=== PATIENT | male | born 1985 | race Caucasian/White ===

== ENCOUNTER 2019-12-17 10:00 | Emergency (ER) | payer SELFPAY ==
--- NOTE | 2019-12-17 10:16 | EDM.PDOC ---
ED HPI GENERAL MEDICAL PROBLEM - General Chief Complaint: Chest Pain Stated Complaint: CHEST PAIN Time Seen by Provider: 12/17/19 10:14 - History of Present Illness INITIAL COMMENTS - FREE TEXT/NARRATIVE: 34-year-old male presents the emergency room with chest pain. This pain started around 4:00 this morning and is described as a left substernal and left-sided stabbing pain. For several days prior to this patient has had a lot of heartburn and indigestion. Patient does not have any history of coronary artery disease and he is not aware of any family history of heart disease or stroke. Patient quit smoking about a year ago he uses alcohol on a intermittent social basis. Left Chest Pain Score (Numeric/FACES): 8 - Related Data Allergies Allergy/AdvReac Type Severity Reaction Status Date / Time No Known Allergies Allergy Verified 12/17/19 10:08 Home Meds: Home Meds Ipratropium [Atrovent HFA] 1 dose INH Q6HR PRN 12/17/19 [History] Past Medical History Respiratory History: Reports: Asthma Social & Family History - Tobacco Use Smoking Status *Q: Former Smoker Used Tobacco, but Quit: Yes Month/Year Tobacco Last Used: 2019 - Caffeine Use Caffeine Use: Reports: None - Recreational Drug Use Recreational Drug Use: No ED ROS GENERAL - Review of Systems Review Of Systems: See Below Constitutional: Reports: No Symptoms HEENT: Reports: No Symptoms Respiratory: Reports: Other (Pain worsens with deep inspiration) Cardiovascular: Reports: Chest Pain. Denies: Dyspnea on Exertion, Edema, Palpitations Endocrine: Reports: No Symptoms GI/Abdominal: Reports: Other (He has had some indigestion and heartburn). Denies: Constipation, Diarrhea, Nausea, Vomiting : Reports: No Symptoms Musculoskeletal: Reports: No Symptoms Skin: Reports: No Symptoms Neurological: Reports: No Symptoms ED EXAM, GENERAL - Physical Exam Exam: See Below Exam Limited By: No Limitations General Appearance: Alert, Moderate Distress (From the discomfort he is clenching the left side of his chest) Head: Atraumatic, Normocephalic Neck: Normal Inspection, Supple, Non-Tender, Full Range of Motion. No: Lymphadenopathy (L), Lymphadenopathy (R) Respiratory/Chest: No Respiratory Distress, Lungs Clear, Normal Breath Sounds Cardiovascular: Regular Rate, Rhythm, No Edema, No Murmur GI/Abdominal: Normal Bowel Sounds, Other (Mild to moderate epigastric discomfort with palpation no rigidity rebound or guarding noted) Extremities: Normal Inspection Neurological: Alert, Oriented, Normal Cognition Course - Vital Signs Last Recorded V/S: Last Vital Signs Temp 36.1 C 12/17/19 10:05 Pulse 96 12/17/19 10:05 Resp 28 H 12/17/19 10:05 BP 139/85 12/17/19 10:42 Pulse Ox 95 12/17/19 10:05 - Orders/Labs/Meds Orders: Active Orders 24 hr Category Date Time Status EKG 12 Lead [EKG Documentation Completion] [RC] STAT Care 12/17/19 10:09 Active Lactated Ringers [Ringers, Lactated] 1,000 ml Med 12/17/19 10:45 Active IV ASDIRECTED Nitroglycerin [Nitrostat] Med 12/17/19 10:33 Active 0.4 mg SL Q5M PRN Medication Orders Lactated Ringer's (Ringers, Lactated) 1,000 mls @ 50 mls/hr IV ASDIRECTED ALDAIR Last Admin: 12/17/19 10:40 Dose: 50 mls/hr Documented by: ELIZABETH Nitroglycerin (Nitrostat) 0.4 mg SL Q5M PRN PRN Reason: Chest Pain Last Admin: 12/17/19 10:42 Dose: 0.4 mg Documented by: ELIZABETH Labs: Laboratory Tests 12/17/19 12/17/19 12/17/19 Range/Units 10:15 10:15 10:15 WBC 9.48 H (4.23-9.07) K/mm3 RBC 5.95 (4.63-6.08) M/mm3 Hgb 17.1 (13.7-17.5) gm/dl Hct 47.4 (40.1-51.0) % MCV 79.7 (79.0-92.2) fl MCH 28.7 (25.7-32.2) pg MCHC 36.1 H (32.2-35.5) g/dl RDW Std Deviation 38.8 (35.1-43.9) fL Plt Count 352 H (163-337) K/mm3 MPV 9.6 (9.4-12.3) fl Neut % (Auto) 50.4 (34.0-67.9) % Lymph % (Auto) 40.6 (21.8-53.1) % [place] % (Auto) 7.0 (5.3-12.2) % Eos % (Auto) 1.4 (0.8-7.0) Baso % (Auto) 0.3 (0.1-1.2) % Neut # (Auto) 4.78 (1.78-5.38) K/mm3 Lymph # (Auto) 3.85 H (1.32-3.57) K/mm3 [place] # (Auto) 0.66 (0.30-0.82) K/mm3 Eos # (Auto) 0.13 (0.04-0.54) K/mm3 Baso # (Auto) 0.03 (0.01-0.08) K/mm3 PT 10.7 (9.7-11.7) SECONDS INR 1.00 APTT 25 (22-31) SECONDS D-Dimer, Quantitative (0.19-0.50) mg/L Sodium 140 (136-145) mEq/L Potassium 3.8 (3.5-5.1) mEq/L Chloride 101 (98-107) mEq/L Carbon Dioxide 25 (21-32) mEq/L Anion Gap 17.8 H (5-15) BUN 14 (7-18) mg/dL Creatinine 1.3 (0.7-1.3) mg/dL Est Cr Clr Drug Dosing 86.08 mL/min Estimated GFR (MDRD) > 60 (>60) mL/min BUN/Creatinine Ratio 10.8 L (14-18) Glucose 105 (74-106) mg/dL Calcium 9.7 (8.5-10.1) mg/dL Total Bilirubin 0.5 (0.2-1.0) mg/dL AST 24 (15-37) U/L ALT 53 (16-63) U/L Alkaline Phosphatase 85 (46-116) U/L Troponin I < 0.017 (0.00-0.056) ng/mL Total Protein 7.8 (6.4-8.2) g/dl Albumin 4.2 (3.4-5.0) g/dl Globulin 3.6 gm/dL Albumin/Globulin Ratio 1.2 (1-2) 12/17/19 12/17/19 Range/Units 10:15 12:36 WBC (4.23-9.07) K/mm3 RBC (4.63-6.08) M/mm3 Hgb (13.7-17.5) gm/dl Hct (40.1-51.0) % MCV (79.0-92.2) fl MCH (25.7-32.2) pg MCHC (32.2-35.5) g/dl RDW Std Deviation (35.1-43.9) fL Plt Count (163-337) K/mm3 MPV (9.4-12.3) fl Neut % (Auto) (34.0-67.9) % Lymph % (Auto) (21.8-53.1) % [place] % (Auto) (5.3-12.2) % Eos % (Auto) (0.8-7.0) Baso % (Auto) (0.1-1.2) % Neut # (Auto) (1.78-5.38) K/mm3 Lymph # (Auto) (1.32-3.57) K/mm3 [place] # (Auto) (0.30-0.82) K/mm3 Eos # (Auto) (0.04-0.54) K/mm3 Baso # (Auto) (0.01-0.08) K/mm3 PT (9.7-11.7) SECONDS INR APTT (22-31) SECONDS D-Dimer, Quantitative < 0.19 L (0.19-0.50) mg/L Sodium (136-145) mEq/L Potassium (3.5-5.1) mEq/L Chloride (98-107) mEq/L Carbon Dioxide (21-32) mEq/L Anion Gap (5-15) BUN (7-18) mg/dL Creatinine (0.7-1.3) mg/dL Est Cr Clr Drug Dosing mL/min Estimated GFR (MDRD) (>60) mL/min BUN/Creatinine Ratio (14-18) Glucose (74-106) mg/dL Calcium (8.5-10.1) mg/dL Total Bilirubin (0.2-1.0) mg/dL AST (15-37) U/L ALT (16-63) U/L Alkaline Phosphatase (46-116) U/L Troponin I < 0.017 (0.00-0.056) ng/mL Total Protein (6.4-8.2) g/dl Albumin (3.4-5.0) g/dl Globulin gm/dL Albumin/Globulin Ratio (1-2) Meds: Medications Generic Name Dose Route Start Last Admin Trade Name Freq PRN Reason Stop Dose Admin Lactated Ringer's 1,000 mls @ 50 mls/hr 12/17/19 10:45 12/17/19 10:40 Ringers, Lactated IV 50 mls/hr ASDIRECTED ALDAIR Administration Nitroglycerin 0.4 mg 12/17/19 10:33 12/17/19 10:42 Nitrostat SL 0.4 mg Q5M PRN Administration Chest Pain Discontinued Medications Generic Name Dose Route Start Last Admin Trade Name Freq PRN Reason Stop Dose Admin Aspirin 324 mg 12/17/19 10:33 12/17/19 10:40 Aspirin PO 12/17/19 10:34 324 mg ONETIME ONE Administration Al Hydroxide/Mg Hydroxide 30 0 ml 12/17/19 11:35 12/17/19 11:46 ml/ Lidocaine HCl 15 ml PO 12/17/19 11:36 45 ml ONETIME ONE Administration Famotidine 40 mg 12/17/19 13:21 Pepcid PO 12/17/19 13:22 ONETIME ONE - Re-Assessments/Exams Free Text/Narrative Re-Assessment/Exam: 12/17/19 11:46 She is doing significantly better he received 1 single nitro and his pain went away. His respiratory rate came down and he is feeling much better he still has a little bit of epigastric discomfort. He has active bowel sounds and moderate epigastric discomfort with palpation we will try a GI cocktail anticipate checking a repeat troponin 12/17/19 12:34 Patient did get some improvement with a GI cocktail we are awaiting second troponin. 12/17/19 13:27 Second troponin is normal the patient has a heart score of 1 1 point for moderately suspicious history. I discussed the relevance with the heart score and with a score less than 3 1.7% will demonstrate some major coronary event or stroke in the next 6 weeks. Discussed the possibility of admission the patient would not like to pursue that. And understands the risk. He agrees to take a baby aspirin a day. Also with his dyspepsia symptoms of GERD he will be started on famotidine 20 mg twice daily for the next 6 or 7 days and then once daily thereafter. And he agrees to establish with a regular physician here in town. Departure - Departure Time of Disposition: 13:29 Disposition: Home, Self-Care 01 Clinical Impression: Chest pain, GERD (gastroesophageal reflux disease) Referrals: PCP,None [Primary Care Provider] - Forms: ED Department Discharge Additional Instructions: Return to the emergency room with any questions problems or worsening symptoms. Start a baby aspirin daily preferably enteric-coated it should be 81 mg of aspirin. Establish with a local primary care provider you may call our hospital clinic. [phone] discuss the utility of a stress Cardiolite or stress echo to be done. 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 Sepsis Event Note (ED) - Evaluation Sepsis Screening Result: No Definite Risk - Focused Exam Vital Signs: Vital Signs Temp Pulse Resp BP BP Pulse Ox 12/17/19 10:42 139/85 12/17/19 10:05 36.1 C 96 28 H 171/113 H 95 - My Orders Last 24 Hours: My Active Orders 12/17/19 10:09 EKG 12 Lead [EKG Documentation Completion] [RC] STAT 12/17/19 10:33 Nitroglycerin [Nitrostat] 0.4 mg SL Q5M PRN 12/17/19 10:45 Lactated Ringers [Ringers, Lactated] 1,000 ml IV ASDIRECTED - Assessment/Plan Last 24 Hours: My Active Orders 12/17/19 10:09 EKG 12 Lead [EKG Documentation Completion] [RC] STAT 12/17/19 10:33 Nitroglycerin [Nitrostat] 0.4 mg SL Q5M PRN 12/17/19 10:45 Lactated Ringers [Ringers, Lactated] 1,000 ml IV ASDIRECTED
[2019-12-17] MEDS ORDERED: Nitroglycerin 0.4 MG Tab.SL SL PRN (10:33)
[2019-12-17] MEDS ORDERED: Aspirin 81 MG Tab.Chew PO ONE (10:33)
--- NOTE | 2019-12-17 10:35 | CR ---
Chest: Portable view of the chest was obtained. Comparison: No prior chest x-ray. Heart size and mediastinum are normal. Lungs are clear with no acute parenchymal change. Bony structures are grossly intact. Impression: 1. Nothing acute is seen on portable chest x-ray. Diagnostic code #1 This report was dictated in MDT
[2019-12-17] MEDS ORDERED: Lactated Ringers 1,000 ML IV SCH (10:45)
[2019-12-17] MEDS ORDERED: Alum Hydrox/Mag Hydrox/Simeth 30 ML, Lidocaine 2% 15 ML PO ONE ×2 (11:35)
[2019-12-17] MEDS ORDERED: Famotidine 20 MG Tab PO ONE (13:21)
== END 2019-12-17 13:39 | disposition home or self-care (01) ==
LOC: JD.ED 10:00
DX: R07.2 Precordial pain (principal); K21.9 Gastro-esophageal reflux disease without esophagitis; J45.909 Unspecified asthma, uncomplicated; Z87.891 Personal history of nicotine dependence
CPT/HCPCS: 36415; 71045; 80053; 84484; 85025; 85379; 85610; 85730; 93005; 96360; 96361; 99285; A9270; J7120; 93010; 99283

== ENCOUNTER 2021-02-04 09:34 | Emergency (ER) | payer SELFPAY ==
--- NOTE | 2021-02-04 10:14 | EDM.PDOC ---
ED HPI GENERAL MEDICAL PROBLEM - General Chief Complaint: Chest Pain Stated Complaint: CHEST PAIN Time Seen by Provider: 02/04/21 10:04 Source of Information: Reports: Patient History Limitations: Reports: No Limitations - History of Present Illness INITIAL COMMENTS - FREE TEXT/NARRATIVE: 35-year-old male presents to the ED with gradually worsening left precordial chest pain over the last 4 to 5 days. States that initially it started out in his left upper back underneath his shoulder blade and over the last 2 days has migrated to the left anterior precordial chest worsened by deep breathing i.e. strong pleuritic component to the pain. No associated cough fever or chills. No known injuries to the chest wall. Pain currently is 7 out of 10. ECG obtained by triage nurse shows normal sinus rhythm at 74/min with no abnormalities detected particular no evidence of ischemia Onset: Gradual Onset Date: 01/30/21 Duration: Day(s):, Getting Worse Location: Reports: Chest (Left precordial chest pain) Quality: Reports: Sharp (Pain is sharp and stabbing and strongly pleuritic), Stabbing Severity: Moderate Improves with: Reports: Rest (8 out of 10) Worsens with: Reports: Other (Worse with certain movements and deep breathing) Context: Denies: Activity, Exercise, Lifting, Sick Contact, Trauma Associated Symptoms: Reports: Chest Pain, Shortness of Breath. 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 (see below) (None.) Left Chest Pain Score (Numeric/FACES): 8 - Related Data Allergies Allergy/AdvReac Type Severity Reaction Status Date / Time No Known Allergies Allergy Verified 02/04/21 10:00 Home Meds: Home Meds Ipratropium [Atrovent HFA] 1 dose INH Q6HR PRN 12/17/19 [History] Diclofenac Sodium [Voltaren] 75 mg PO BIDMEALS #16 tab.cr 02/04/21 [Rx] oxyCODONE HCl/Acetaminophen [Percocet 5-325 mg Tablet] 1 - 2 each PO Q4H PRN #10 tablet 02/04/21 [Rx] predniSONE [Prednisone] 20 mg PO ASDIRECTED #15 tablet 02/04/21 [Rx] Past Medical History Respiratory History: Reports: Asthma - Infectious Disease History Infectious Disease History: Reports: Novel Coronavirus Social & Family History - Tobacco Use Tobacco Use Status *Q: Current Every Day Tobacco User Years of Tobacco use: 15 Packs/Tins Daily: 1 - Caffeine Use Caffeine Use: Reports: None - Recreational Drug Use Recreational Drug Use: No - Living Situation & Occupation Living situation: Reports: Single 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 Denies: Cough, Sputum ( strong pleuritic component to left precordial chest pain), Hemoptysis Cardiovascular: Reports: Chest Pain. Denies: Blood Pressure Problem (History of present illness), Dyspnea on Exertion, Edema, Lightheadedness Endocrine: Reports: No Symptoms GI/Abdominal: Reports: No Symptoms : Reports: No Symptoms Musculoskeletal: Reports: No Symptoms Skin: Reports: No Symptoms Neurological: Reports: No Symptoms Psychiatric: Reports: No Symptoms Hematologic/Lymphatic: Reports: No Symptoms Immunologic: Reports: No Symptoms ED EXAM, GENERAL - Physical Exam Exam: See Below Exam Limited By: No Limitations General Appearance: Alert, WD/WN, Mild Distress, Other (He has significant splinting respirations on observation. Temperature is 36.1 with a heart rate of 77 and sinus. Respiratory is 22 with O2 sats of 99% room air. BP is mildly elevated 156 105.) Eye Exam: Bilateral Eye: Normal Inspection (No blepharal pallor or scleral icterus.) Throat/Mouth: Normal Inspection, Normal Lips, Normal Teeth, Normal Oropharynx Head: Atraumatic, Normocephalic Neck: Normal Inspection, Supple, Non-Tender, Full Range of Motion. No: Carotid Bruit, Lymphadenopathy (L), Lymphadenopathy (R) Respiratory/Chest: No Respiratory Distress, Lungs Clear, Normal Breath Sounds, No Accessory Muscle Use, Other (Wall tenderness appreciated on palpation of ribs 5 and 6 midclavicular line and also anterior axillary line.) Cardiovascular: Normal Peripheral Pulses, Regular Rate, Rhythm, No Edema, No Gallop, No Murmur, No Rub Peripheral Pulses: 3+: Carotid (L), Carotid (R), Posterior Tibial (L), Posterior Tibial (R), Dorsalis Pedis (L), Dorsalis Pedis (R) GI/Abdominal: Normal Bowel Sounds, Soft, Non-Tender, No Organomegaly, No Distention Back Exam: Normal Inspection, Full Range of Motion, Other. No: CVA Tenderness (L), CVA Tenderness (R) Extremities: Normal Inspection, Normal Range of Motion, Non-Tender, No Pedal Edema Neurological: Alert, Oriented, CN II-XII Intact, Normal Cognition Psychiatric: Anxious Skin Exam: Warm (Mildly anxious), Dry, Intact, Normal Color, No Rash #1 Interpretation EKG Date: 02/04/21 Time: 09:55 Rhythm: NSR Rate (Beats/Min): 74 [place]: Normal P-Wave: Present QRS: Normal ST-T: Other (Mild diffuse early repolarization pattern in the precordial leads) QT: Normal EKG Interpretation Comments: Normal ECG Course - Vital Signs Last Recorded V/S: Last Vital Signs Temp 36.1 C 02/04/21 09:59 Pulse 77 02/04/21 09:59 Resp 22 H 02/04/21 09:59 BP 156/105 H 02/04/21 09:59 Pulse Ox 99 02/04/21 09:59 - Orders/Labs/Meds Orders: Active Orders 24 hr Category Date Time Status Chest 1V Frontal [CR] Stat Exams 02/04/21 10:16 Taken DD [D-DIMER QUANTITATIVE] [COAG] Stat Lab 02/04/21 10:08 Received INR,PT,PROTHROMBIN TIME [COAG] Stat Lab 02/04/21 10:08 Received PTT,PARTIAL THROMBOPLSTIN TIME [COAG] Stat Lab 02/04/21 10:08 Received Ketorolac [Toradol] Med 02/04/21 10:15 Active 30 mg IVPUSH ONETIME Medication Orders Ketorolac Tromethamine (Ketorolac 30 Mg/Ml Sdv) 30 mg IVPUSH ONETIME ALDAIR Last Admin: 02/04/21 10:45 Dose: 30 mg Documented by: SOUTH Labs: Laboratory Tests 02/04/21 02/04/21 Range/Units 10:08 10:08 WBC 8.54 (4.23-9.07) K/mm3 RBC 6.54 H (4.63-6.08) M/mm3 Hgb 18.1 H (13.7-17.5) gm/dl Hct 51.2 H (40.1-51.0) % MCV 78.3 L (79.0-92.2) fl MCH 27.7 (25.7-32.2) pg MCHC 35.4 (32.2-35.5) g/dl RDW Std Deviation 45.1 H (35.1-43.9) fL Plt Count 282 (163-337) K/mm3 MPV 9.8 (9.4-12.3) fl Neut % (Auto) 54.7 (34.0-67.9) % Lymph % (Auto) 36.8 (21.8-53.1) % [place] % (Auto) 6.8 (5.3-12.2) % Eos % (Auto) 1.1 (0.8-7.0) Baso % (Auto) 0.4 (0.1-1.2) % Neut # (Auto) 4.68 (1.78-5.38) K/mm3 Lymph # (Auto) 3.14 (1.32-3.57) K/mm3 [place] # (Auto) 0.58 (0.30-0.82) K/mm3 Eos # (Auto) 0.09 (0.04-0.54) K/mm3 Baso # (Auto) 0.03 (0.01-0.08) K/mm3 Sodium 141 (136-145) mEq/L Potassium 4.0 (3.5-5.1) mEq/L Chloride 105 (98-107) mEq/L Carbon Dioxide 25 (21-32) mEq/L Anion Gap 15.0 (5-15) BUN 14 (7-18) mg/dL Creatinine 1.2 (0.7-1.3) mg/dL Est Cr Clr Drug Dosing 89.56 mL/min Estimated GFR (MDRD) > 60 (>60) mL/min BUN/Creatinine Ratio 11.7 L (14-18) Glucose 98 (70-99) mg/dL Calcium 9.3 (8.5-10.1) mg/dL Total Bilirubin 1.0 (0.2-1.0) mg/dL AST 24 (15-37) U/L ALT 32 (16-63) U/L Alkaline Phosphatase 65 (46-116) U/L CK-MB (CK-2) 1.0 (0-3.6) ng/ml Troponin I < 0.017 (0.00-0.056) ng/mL C-Reactive Protein <0.2 (<1.0) mg/dL Total Protein 7.4 (6.4-8.2) g/dl Albumin 4.1 (3.4-5.0) g/dl Globulin 3.3 gm/dL Albumin/Globulin Ratio 1.2 (1-2) Meds: Medications Generic Name Dose Route Start Last Admin Trade Name Oriq PRN Reason Stop Dose Admin Ketorolac Tromethamine 30 mg 02/04/21 10:15 02/04/21 10:45 Ketorolac 30 Mg/Ml Sdv IVPUSH 30 mg ONETIME ALDAIR Administration Discontinued Medications Generic Name Dose Route Start Last Admin Trade Name Oriq PRN Reason Stop Dose Admin Hydromorphone HCl 0.5 mg 02/04/21 10:15 02/04/21 10:46 Hydromorphone 0.5 Mg/0.5 Ml Syringe IVPUSH 02/04/21 10:16 0.5 mg ONETIME ONE Administration Ondansetron HCl 4 mg 02/04/21 10:15 02/04/21 10:45 Ondansetron 4 Mg/2 Ml Sdv IVPUSH 02/04/21 10:16 4 mg ONETIME ONE Administration - Radiology Interpretation Free Text/Narrative:: 35-year-old male presents to the ED for evaluation of gradually worsening left upper back pain radiating now into his left anterior chest. There is a strong pleuritic component to the pain. He has no associated cough or sputum production or fever or chills. No known chest wall injury. Exam reveals tenderness to palpation over ribs 5 and 6 both in the midclavicular line and anterior axillary line. No abnormal findings on back examination. Plan chest x-ray to be done. ECG has been done and is normal. Routine labs to be collected including cardiac markers. Given Toradol 30 mg IV with Dilaudid 0.5 mg IV and Zofran 4 mg IV for pain relief. - Re-Assessments/Exams Free Text/Narrative Re-Assessment/Exam: 02/04/21 10:54 chest x-ray done portably is completely normal. Awaiting lab tests. 02/04/21 10:55 White count is normal at 8.54. Auto differential shows 55% neutrophils. Hemoglobin is 18.1 with hematocrit of 51.2 suggesting is mildly volume depleted. MCV is also slightly low at 78.3 suggesting iron deficiency. 02/04/21 11:19 Sodium is 141 with a potassium of 4.0. Chloride 105 with a bicarb of 25. Anion gap is 15.0. BUN is 14 with a creatinine of 1.2. GFR is greater than 60. BUN/creatinine ratio is 11.7. Glucose is 98 with a calcium of 9.3 liver function normal CK-MB was 1.0 with a troponin I less than 0.017. C- reactive protein is less than 0.2. Total protein 7.4 with an albumin fraction of 4.1. Patient is able to take full deep breath now after analgesia IV. The plan will be to send him home on prednisone 20 mg twice daily for the next 5 days and then once in the morning only for another 5 days to relieve inflamma tion. Voltaren 75 mg by mouth twice daily for the next 8 days with breakfast and supper. Pleuritic pain likely of viral etiology. Departure - Departure Time of Disposition: 11:20 Disposition: Home, Self-Care 01 Reason for Transfer *Q: Other Condition: Fair Clinical Impression: Pleurisy Prescriptions: oxyCODONE HCl/Acetaminophen [Percocet 5-325 mg Tablet] 1 - 2 each PO Q4H PRN #10 tablet PRN Reason: Left chest pain-pleurisy predniSONE [Prednisone] 20 mg PO ASDIRECTED #15 tablet Diclofenac Sodium [Voltaren] 75 mg PO BIDMEALS #16 tab.cr Instructions: Pleurisy, [id number] Referrals: PCP,None [Primary Care Provider] - Forms: ED Department Discharge Additional Instructions: Evaluation in the emergency room today in regards to gradually worsening left- sided chest pain starting initially in your left back under the shoulder blade now radiating through to the anterior chest in the left precordium. Ribs 5 and 6 were very tender to touch on examination. ECG proved to be normal or heart tracing was normal. Chest x-ray proved to be normal as well. Lab tests revealed no signs of a bacterial infection. Current inflammation in the chest wall is viral in cause. It usually caused by echovirus or coxsackievirus. It can last up to 6 weeks. Suggest treatment with anti-inflammatory medication Voltaren 75 mg by mouth twice daily with breakfast and supper for 8 days. This should be taken with food in your stomach. Your first tablet could be taken tonight at suppertime. You received an anti-inflammatory intravenously while in the ED today. Suggest prednisone 20 mg tablet twice daily for 5 days with breakfast and supper and then once daily in the morning only for another 5 days to completely resolve inflammation in the chest wall. I have sent you home also with a few pain pills that she could use if needed for the next day or 2 till the anti-inflammatories become effective. This is Percocet tab 5 325 mg strength 1 or 2 every 4-6 hours as needed for pain relief. You should not operate machinery or drive while taking strong pain medication. Care Plan Goals: Evaluation in the emergency room today in regards to left-sided chest pain with a strong pleuritic component i.e. every time you take a deep breath the pain worsens. No associated fever chills cough or sputum production. Chest x-ray was normal. Heart tracing was normal. Lab tests revealed no signs of a bacterial infection and no signs of heart related illness. Suggest treatment w ith anti-inflammatories prednisone 20 mg twice daily with breakfast and supper for 5 days and then once in the morning only for another 5 days to relieve the inflammation in the left chest wall. Also use of Voltaren 75 mg twice daily with breakfast and supper for 8 days to relieve pain and inflammation. I did send a prescription for pain medication Percocet tabs 5/325 mg strength may use 1 or 2 every 4-6 hours necessary for pain relief until the anti-inflammatories become effective which is usually with an 36 to 48 hours. Expect gradual improvement in the chest pain over the next 3 to 7 days. Sometimes it will return after finishing up the medication you may need a second round of medication if this occurs. Activity as tolerated. Sepsis Event Note (ED) - Focused Exam Vital Signs: Vital Signs Temp Pulse Resp BP Pulse Ox 02/04/21 09:59 36.1 C 77 22 H 156/105 H 99 - My Orders Last 24 Hours: My Active Orders 02/04/21 10:08 DD [D-DIMER QUANTITATIVE] [COAG] Stat INR,PT,PROTHROMBIN TIME [COAG] Stat PTT,PARTIAL THROMBOPLSTIN TIME [COAG] Stat 02/04/21 10:15 Ketorolac [Toradol] 30 mg IVPUSH ONETIME 02/04/21 10:16 Chest 1V Frontal [CR] Stat - Assessment/Plan Last 24 Hours: My Active Orders 02/04/21 10:08 DD [D-DIMER QUANTITATIVE] [COAG] Stat INR,PT,PROTHROMBIN TIME [COAG] Stat PTT,PARTIAL THROMBOPLSTIN TIME [COAG] Stat 02/04/21 10:15 Ketorolac [Toradol] 30 mg IVPUSH ONETIME 02/04/21 10:16 Chest 1V Frontal [CR] Stat
[2021-02-04] MEDS ORDERED: Ketorolac 30 MG/ML SDV IVPUSH SCH (10:15)
[2021-02-04] MEDS ORDERED: Ondansetron 4 MG/2 ML SDV IVPUSH ONE (10:15)
[2021-02-04] MEDS ORDERED: HYDROmorphone 0.5 MG/0.5 ML Syringe IVPUSH ONE (10:15)
--- NOTE | 2021-02-04 17:43 | CR ---
Chest: Frontal view of the chest was obtained. Comparison: Prior chest x-ray of 12/17/19. Heart size and mediastinum are within normal limits. Lungs are clear with no acute parenchymal change. Bony structure shows nothing acute. Impression: 1. Nothing acute is seen on frontal chest x-ray. Diagnostic code #1
== END 2021-02-04 11:36 | disposition home or self-care (01) ==
LOC: JD.ED 09:34
DX: R09.1 Pleurisy (principal); Z72.0 Tobacco use
CPT/HCPCS: 36415; 71045; 80053; 82553; 84484; 85025; 85379; 85610; 85730; 86140; 96374; 96375; 99285; J1170; J1885; J2405